=== PATIENT | male | born 1950 | race Caucasian/White ===

== ENCOUNTER 2017-02-03 05:43 | Day surgery (SDC) | payer OTHER ==
[2017-02-03] MEDS ORDERED: Dextrose 5%-0.45% NaCl 1,000 ML IV SCH (06:00)
[2017-02-03] MEDS ORDERED: Sodium Chloride 0.9% 10 ML Syringe FLUSH PRN (06:00)
[2017-02-03] MEDS ORDERED: Midazolam 1 MG/ML 2 ML SDV ONE (06:12)
[2017-02-03] MEDS ORDERED: fentaNYL 100 MCG/2 ML SDV ONE (06:12)
[2017-02-03] MEDS ORDERED: fentaNYL 100 MCG/2 ML SDV IV ONE ×5 (07:03→16:12)
[2017-02-03] MEDS ORDERED: Midazolam 1 MG/ML 2 ML SDV IV ONE ×7 (07:05→16:12)
[2017-02-03 09:07] VITALS: BP 137/85
--- NOTE | 2017-02-03 09:40 | OR ---
DATE: 02/03/2017 PROCEDURE: Total colonoscopy. INSTRUMENT USED: [id number]-H180AL Olympus video colonoscope. PREMEDICATIONS: Fentanyl 150 mcg intravenous, Versed 4 mg intravenous. Nasal 2 L O2 cannula. The procedure was done under pulse oximetry, BP recording, and ball machine operator. INDICATION: The patient with recurrent left-sided lower abdominal pain, unexplained. Colonoscopic examination is done for detection of any polypoid lesions and removal, endoscopic hemostasis therapy if needed. DESCRIPTION OF PROCEDURE: Initial rectal exam was unremarkable. Rigid anoscopy showed small internal hemorrhoids without bleeding from them. The colonoscope was passed with ease. Scattered diverticula were noted, more so in the distal left colon. The scope was passed with ease up to the ileocecal area, photographs were taken of the normal-appearing cecum, identified by landmarks of appendiceal orifice and double-bulged ileocecal folds. No bleeding was noted from any of the visualized areas at the commencement of the examination. No stricture. No vascular ectasia. No large isolated ulcerations seen. No evidence of diffuse inflammatory bowel disease in the form of friability, contact bleeding, or ulcerations. No polyp or tumor mass identified. Probing the proximal sides of folds and flexures, using adequate distention and clearing up the stool material, withdrawal of the scope was made, cecum to rectum time over 6 minutes. No bleeding was noted from any of the visualized areas at the completion of examination. IMPRESSION: 1. Internal hemorrhoids. 2. Diverticulosis. The patient tolerated the procedure well. [facility] /[id number]
== END 2017-02-03 09:10 | disposition home or self-care (01) ==
LOC: DL.ENDO 05:43
PROVIDERS: ATTEND Internal Medicine Gastroenterology
DX: K57.30 Diverticulosis of large intestine without perforation or abscess without bleeding (principal); K64.8 Other hemorrhoids
CPT/HCPCS: 45378; J2250; J3010; J7042

== ENCOUNTER 2022-11-28 05:46 | Day surgery (SDC) | payer OTHER ==
[~2022-11-28 05:46] MED LIST: Sodium Chloride 0.9% 10 ML Syringe FLUSH SCH
[2022-11-28] MEDS ORDERED: fentaNYL 100 MCG/2 ML SDV IV ONE ×3 (05:47→07:02)
[2022-11-28] MEDS ORDERED: Midazolam 1 MG/ML 2 ML SDV IV ONE ×5 (05:47→07:11)
[2022-11-28] MEDS ORDERED: fentaNYL 100 MCG/2 ML SDV ONE (06:16)
[2022-11-28] MEDS ORDERED: Midazolam 1 MG/ML 2 ML SDV ONE (06:16)
[2022-11-28] MEDS ORDERED: Sodium Chloride 0.9% 10 ML Syringe FLUSH PRN (06:30)
[2022-11-28] MEDS ORDERED: Dextrose 5%-0.45% NaCl 1,000 ML IV SCH (06:30)
[2022-11-28 10:09] VITALS: BP 127/64; PULSE 67
== END 2022-11-28 08:50 | disposition home or self-care (01) ==
LOC: DL.ENDO 05:46
PROVIDERS: ATTEND Internal Medicine Gastroenterology
DX: Z12.11 Encounter for screening for malignant neoplasm of colon (principal); D12.2 Benign neoplasm of ascending colon; K57.30 Diverticulosis of large intestine without perforation or abscess without bleeding; K64.8 Other hemorrhoids
CPT/HCPCS: 45385; J2250; J3010; J7042

== ENCOUNTER 2024-03-10 05:18 | Day surgery (SDC) | payer MEDICARE, OTHER ==
[2024-03-10] MEDS ORDERED: Midazolam 1 MG/ML 2 ML SDV IV ONE (05:19)
[2024-03-10] MEDS ORDERED: fentaNYL 100 MCG/2 ML SDV IV ONE (05:19)
[2024-03-10] MEDS: Dextrose 5%-0.45% NaCl 1,000 ML IV SCH (05:48)
[2024-03-10] MEDS ORDERED: fentaNYL 100 MCG/2 ML SDV ONE (06:15)
[2024-03-10] MEDS ORDERED: Midazolam 1 MG/ML 2 ML SDV ONE (06:15)
[2024-03-10] MEDS: fentaNYL 100 MCG/2 ML SDV IV ONE ×2 (06:26→06:27)
[2024-03-10] MEDS: Midazolam 1 MG/ML 2 ML SDV IV ONE ×2 (06:27→06:28)
[2024-03-10 09:11] VITALS: BP 90/55; PULSE 81
== END 2024-03-10 08:40 | disposition home or self-care (01) ==
LOC: DL.ENDO 05:18
PROVIDERS: ATTEND Internal Medicine Gastroenterology
DX: D50.9 Iron deficiency anemia, unspecified (principal); I12.9 Hypertensive chronic kidney disease with stage 1 through stage 4 chronic kidney disease, or unspecified chronic kidney disease; E11.22 Type 2 diabetes mellitus with diabetic chronic kidney disease; N18.30 Chronic kidney disease, stage 3 unspecified; E03.9 Hypothyroidism, unspecified; E66.9 Obesity, unspecified; Z68.31 Body mass index [BMI] 31.0-31.9, adult
CPT/HCPCS: 87077; 88305; J2250; J3010; J7042

== ENCOUNTER 2024-03-31 05:45 | Day surgery (SDC) | payer MEDICARE, OTHER ==
[2024-03-31] MEDS ORDERED: Midazolam 1 MG/ML 2 ML SDV IV ONE (05:46)
[2024-03-31] MEDS ORDERED: fentaNYL 100 MCG/2 ML SDV IV ONE (05:46)
[2024-03-31] MEDS ORDERED: Midazolam 1 MG/ML 2 ML SDV ONE (06:10)
[2024-03-31] MEDS ORDERED: fentaNYL 100 MCG/2 ML SDV ONE (06:10)
[2024-03-31] MEDS: Dextrose 5%-0.45% NaCl 1,000 ML IV SCH (06:23)
[2024-03-31] MEDS: fentaNYL 100 MCG/2 ML SDV IV ONE ×2 (06:56→06:57)
[2024-03-31] MEDS: Midazolam 1 MG/ML 2 ML SDV IV ONE ×6 (06:57→07:06)
[2024-03-31 08:08] VITALS: BP 112/62; PULSE 69
== END 2024-03-31 08:35 | disposition home or self-care (01) ==
LOC: DL.ENDO 05:45
PROVIDERS: ATTEND Internal Medicine Gastroenterology
DX: K64.8 Other hemorrhoids (principal); K57.30 Diverticulosis of large intestine without perforation or abscess without bleeding; D50.9 Iron deficiency anemia, unspecified; E11.22 Type 2 diabetes mellitus with diabetic chronic kidney disease; I12.9 Hypertensive chronic kidney disease with stage 1 through stage 4 chronic kidney disease, or unspecified chronic kidney disease; N18.30 Chronic kidney disease, stage 3 unspecified; E03.9 Hypothyroidism, unspecified
CPT/HCPCS: 45378; J2250; J3010; J7042

== ENCOUNTER 2024-07-13 06:54 | Day surgery (SDC) | payer MEDICARE, OTHER ==
[~2024-07-13 06:54] MED LIST changes: +Phenylephrine 1% 10 MG/ML SDV ONE; -Sodium Chloride 0.9% 10 ML Syringe FLUSH SCH
[2024-07-13] MEDS ORDERED: Ondansetron 4 MG/2 ML SDV IVPUSH PRN (07:00)
[2024-07-13] MEDS ORDERED: Acetaminophen 325 MG Tab PO PRN (07:00)
[2024-07-13] MEDS ORDERED: Dexamethasone 4 MG/ML SDV ONE (07:14)
[2024-07-13] MEDS: Sodium Chloride 0.9% 10 ML Syringe FLUSH PRN (07:26)
[2024-07-13] MEDS: Proparacaine 0.5% Ophth Soln 15 ML Bottle EYELF ONE ×2 (07:27→08:23)
[2024-07-13] MEDS: Povidone-Iodine 5% Sterile Ophth Soln 30 ML Bottle EYELF ONE (07:29)
[2024-07-13] MEDS: Moxifloxacin 0.5% Ophth Soln 3 ML Bottle EYELF ONE (07:29)
[2024-07-13] MEDS: Tropicamide 1% Ophth Soln 15 ML Bottle EYELF ONE (07:30)
[2024-07-13] MEDS: Phenylephrine 10% Ophth Soln 5 ML Bot EYELF ONE (07:32)
[2024-07-13] MEDS: Timolol Maleate 0.5% Ophth Soln 5 ML Bottle EYELF ONE (07:33)
[2024-07-13] MEDS: Cataract Ophth Solution EYELF ONE (07:33)
[2024-07-13] MEDS ORDERED: Carbachol 0.01% Intraocular 1.5 ML Vial ONE (08:09)
[2024-07-13] MEDS: Povidone-Iodine 5% Sterile Ophth Soln 30 ML Bottle ONE (08:24)
[2024-07-13] MEDS: Apraclonidine 0.5% Ophth Soln 5 ML Bot EYELF ONE (08:25)
[2024-07-13] MEDS: Dexamethasone/Neomycin/Polymyxin B Ophth Oint 3.5 GM Tube EYELF ONE (08:26)
[2024-07-13] MEDS: Diclofenac Sodium 0.1% Ophth Soln 5 ML Bottle EYELF ONE (08:26)
[2024-07-13] MEDS: Lidocaine 1% 30 ML SDV ONE (08:26)
[2024-07-13] MEDS: Carbachol 0.01% Intraocular 1.5 ML Vial EYELF ONE (08:28)
[2024-07-13] MEDS: Vancomycin 500 MG SDV EYELF ONE (08:28)
[2024-07-13 09:11] VITALS: BP 117/62; PULSE 62
== END 2024-07-13 09:20 | disposition home or self-care (01) ==
LOC: DL.SDS 06:54
PROVIDERS: ATTEND Ophthalmology
DX: E11.36 Type 2 diabetes mellitus with diabetic cataract (principal); H25.812 Combined forms of age-related cataract, left eye; I12.9 Hypertensive chronic kidney disease with stage 1 through stage 4 chronic kidney disease, or unspecified chronic kidney disease; E11.22 Type 2 diabetes mellitus with diabetic chronic kidney disease; N18.30 Chronic kidney disease, stage 3 unspecified; E03.9 Hypothyroidism, unspecified; E66.9 Obesity, unspecified; E79.0 Hyperuricemia without signs of inflammatory arthritis and tophaceous disease; Z79.899 Other long term (current) drug therapy; Z79.890 Hormone replacement therapy; Z79.84 Long term (current) use of oral hypoglycemic drugs; Z79.82 Long term (current) use of aspirin; Z68.30 Body mass index [BMI] 30.0-30.9, adult; Z88.5 Allergy status to narcotic agent
CPT/HCPCS: 00142; 99100; A9270-GY; J3370; J3490; V2632

== ENCOUNTER 2024-07-27 06:55 | Day surgery (SDC) | payer MEDICARE, OTHER ==
[2024-07-27] MEDS: Proparacaine 0.5% Ophth Soln 15 ML Bottle EYERT ONE ×3 (06:24→08:07)
[2024-07-27] MEDS: Lidocaine 1% 30 ML SDV ONE ×2 (06:25→08:20)
[2024-07-27] MEDS: Povidone-Iodine 5% Sterile Ophth Soln 30 ML Bottle EYERT ONE ×3 (06:25→08:09)
[2024-07-27] MEDS: Apraclonidine 0.5% Ophth Soln 5 ML Bot EYERT ONE ×2 (06:26→08:30)
[2024-07-27] MEDS: Vancomycin 500 MG SDV EYERT ONE ×2 (06:26→08:20)
[2024-07-27] MEDS: Diclofenac Sodium 0.1% Ophth Soln 5 ML Bottle EYERT ONE ×2 (06:27→08:31)
[2024-07-27] MEDS: Dexamethasone/Neomycin/Polymyxin B Ophth Oint 3.5 GM Tube EYERT ONE ×2 (06:31→08:31)
[~2024-07-27 06:55] MED LIST changes: -Phenylephrine 1% 10 MG/ML SDV ONE; +Povidone-Iodine 5% Sterile Ophth Soln 30 ML Bottle ONE; +Proparacaine 0.5% Ophth Soln 15 ML Bottle ONE; +Tobramycin 0.3% Ophth Oint 3.5 GM Tube ONE
[2024-07-27] MEDS ORDERED: Acetaminophen 325 MG Tab PO PRN (07:00)
[2024-07-27] MEDS ORDERED: Acetaminophen/Codeine 300-30 MG Tab PO PRN (07:00)
[2024-07-27] MEDS ORDERED: Ondansetron 4 MG/2 ML SDV IVPUSH PRN (07:00)
[2024-07-27] MEDS ORDERED: Midazolam 1 MG/ML 2 ML SDV ONE (07:18)
[2024-07-27] MEDS ORDERED: Dexamethasone 4 MG/ML SDV ONE (07:19)
[2024-07-27] MEDS: Moxifloxacin 0.5% Ophth Soln 3 ML Bottle EYERT ONE (07:36)
[2024-07-27] MEDS: Tropicamide 1% Ophth Soln 15 ML Bottle EYERT ONE (07:39)
[2024-07-27] MEDS: Phenylephrine 10% Ophth Soln 5 ML Bot EYERT ONE (07:39)
[2024-07-27] MEDS: Timolol Maleate 0.5% Ophth Soln 5 ML Bottle EYERT ONE (07:40)
[2024-07-27] MEDS: Cataract Ophth Solution EYERT ONE (07:41)
[2024-07-27] MEDS: Sodium Chloride 0.9% 10 ML Syringe FLUSH PRN (07:43)
[2024-07-27 08:42] VITALS: PULSE 77
[2024-07-27 09:13] VITALS: BP 130/67
== END 2024-07-27 09:07 | disposition home or self-care (01) ==
LOC: DL.SDS 06:55
PROVIDERS: ATTEND Ophthalmology
DX: E11.36 Type 2 diabetes mellitus with diabetic cataract (principal); H25.811 Combined forms of age-related cataract, right eye; H40.1111 Primary open-angle glaucoma, right eye, mild stage; E11.22 Type 2 diabetes mellitus with diabetic chronic kidney disease; I12.9 Hypertensive chronic kidney disease with stage 1 through stage 4 chronic kidney disease, or unspecified chronic kidney disease; N18.30 Chronic kidney disease, stage 3 unspecified; E03.9 Hypothyroidism, unspecified; E66.9 Obesity, unspecified
CPT/HCPCS: A9270-GY; C1783; J3370; J3490; V2632

== ENCOUNTER 2025-03-28 06:23 | Day surgery (SDC) | payer MEDICARE, OTHER ==
[~2025-03-28 06:23] MED LIST changes: -Povidone-Iodine 5% Sterile Ophth Soln 30 ML Bottle ONE; -Proparacaine 0.5% Ophth Soln 15 ML Bottle ONE; +Propofol 200 MG/20 ML SDV ONE; -Tobramycin 0.3% Ophth Oint 3.5 GM Tube ONE
[2025-03-28] MEDS: Lactated Ringers 1,000 ML IV SCH (07:20)
[2025-03-28 09:42] VITALS: BP 137/71; PULSE 79
== END 2025-03-28 09:56 | disposition home or self-care (01) ==
LOC: DL.ENDO 06:23
PROVIDERS: ATTEND Internal Medicine Gastroenterology
DX: K29.50 Unspecified chronic gastritis without bleeding (principal); K20.0 Eosinophilic esophagitis; K22.2 Esophageal obstruction; E11.22 Type 2 diabetes mellitus with diabetic chronic kidney disease; I12.9 Hypertensive chronic kidney disease with stage 1 through stage 4 chronic kidney disease, or unspecified chronic kidney disease; N18.9 Chronic kidney disease, unspecified; E03.9 Hypothyroidism, unspecified; E79.0 Hyperuricemia without signs of inflammatory arthritis and tophaceous disease; E23.0 Hypopituitarism; E66.9 Obesity, unspecified; Z88.5 Allergy status to narcotic agent; Z79.84 Long term (current) use of oral hypoglycemic drugs; Z79.82 Long term (current) use of aspirin; Z79.899 Other long term (current) drug therapy; Z79.890 Hormone replacement therapy
CPT/HCPCS: 43239; 43450; J7120; 00731; 88305; 99100